=== PATIENT | male | born 2000 | race Caucasian/White ===

== ENCOUNTER 2019-05-06 13:11 | Emergency (ER) | payer SELFPAY ==
[~2019-05-06] VITALS: Ht 193 cm; Wt 110.4 kg
--- NOTE | 2019-05-06 13:59 | Diagnostic Imaging Report ---
Indication: Right ankle pain and swelling with redness. Comparison: None. Discussion: Three views of the right ankle were obtained. Diffuse soft tissue swelling is noted. The ankle mortise is symmetric. No fracture or dislocation. No osseous destruction. No foreign body. Impression: 1. Right ankle soft tissue swelling. No osseous abnormality. Dictated by: Dictated on workstation # [id number]
[2019-05-06 14:01] LABS: BASOPHILS % (AUTO) 1 % (0-10); EOSINOPHILS % (AUTO) 5 % (0-10); HEMATOCRIT 47 % (40-54); HEMOGLOBIN 15.8 G/DL (13.3-17.7); LYMPHOCYTES % (AUTO) 24 % (12-44); MEAN CORPUSCULAR HEMOGLOBIN 30 PG (25-34); MEAN CORPUSCULAR HGB CONC 34 G/DL (32-36); MEAN CORPUSCULAR VOLUME 89 FL (80-99); MEAN PLATELET VOLUME 10.3 FL (7.4-10.4); MONOCYTES % (AUTO) 12 % (0-12); NEUTROPHILS % (AUTO) 58 % (42-75); PLATELET COUNT 267 10^3/uL (130-400); RED CELL DISTRIBUTION WIDTH 12.8 % (10.0-14.5); WHITE BLOOD COUNT 7.2 10^3/uL (4.3-11.0)
[2019-05-06 14:02] LABS: BASOPHILS # (AUTO) 0.1 10^3/uL (0.0-0.1); EOSINOPHILS # (AUTO) 0.4 10^3/uL (0.0-0.3); LYMPHOCYTES # (AUTO) 1.7 X 10^3 (1.0-4.0); MONOCYTES # (AUTO) 0.9 X 10^3 (0.0-1.0); NEUTROPHILS # (AUTO) 4.2 X 10^3 (1.8-7.8)
[2019-05-06 14:27] LABS: ALKALINE PHOSPHATASE 104 U/L (40-136); BILIRUBIN,TOTAL 0.4 MG/DL (0.1-1.0); BUN/CREATININE RATIO 10; CALCIUM 9.7 MG/DL (8.5-10.1); CARBON DIOXIDE 26 MMOL/L (21-32); CHLORIDE 102 MMOL/L (98-107); CREATININE SERUM 0.86 MG/DL (0.60-1.30); GFR ESTIMATED > 60; GLUCOSE 84 MG/DL (70-105); SODIUM 141 MMOL/L (135-145)
[2019-05-06 14:28] LABS: ALANINE AMINOTRANSFERASE 26 U/L (0-55); ALBUMIN 4.6 GM/DL (3.2-4.5)
[2019-05-06 14:41] LABS: ERYTHROCYTE SEDIMENTATION RATE 5 MM/HR (0-15)
[2019-05-06] MEDS ORDERED: cefTRIAXone FOR IV USE 2,000 MG in WATER (STERILE) FOR INJECTION 20 ML IV ONE (14:45)
--- NOTE | 2019-05-06 15:10 | ED Integumentary General ---
General Chief Complaint: Skin/Wound Problems Stated Complaint: SWOLLEN/RED RT ANKLE Nursing Triage Note: Pt presents ambulatory to ED [facility] reporting area of pain with rednessa nd swelling started on Tue or . 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 and referred him to go be seen for it. Source: patient Exam Limitations: no limitations History of Present Illness Date Seen by Provider: May 06, 2019 Time Seen by Provider: 15:05 Initial Comments This 18-year-old male presents with a swollen red right ankle that began approximate 4 days ago. The patient denies trauma to the area. He denies similar episodes in the past. He denies other area of rash or inflammation. The patient denies sex with a new partner. He is heterosexual. Patient denies dysuria or frequency or penile discharge. Patient denies history of similar redness or joint pain in the past. 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 Patient denies significant past medical history. Allergies and Home Medications Allergies Coded Allergies: No Known Drug Allergies (Unverified , 05/06/19) Home Medications No Active Prescriptions or Reported Meds Patient Home Medication List Home Medication List Reviewed: Yes Review of Systems Review of Systems Constitutional: No chills, No fever EENTM: no symptoms reported Respiratory: no symptoms reported Cardiovascular: no symptoms reported Gastrointestinal: no symptoms reported Genitourinary: no symptoms reported; No discharge, No dysuria Musculoskeletal: see HPI; No back pain; joint pain Skin: change in color (right ankle) Psychiatric/Neurological: No Symptoms Reported Endocrine: No Symptoms Reported Hematologic/Lymphatic: No Symptoms Reported Past Wvxgjwl-Btxnun-Yfoaev Hx Past Med/Social Hx: Reviewed Nursing Past Med/Soc Hx Patient Social History Alcohol Use: Denies Use Recreational Drug Use: No Smoking Status: Never a Smoker Recent Foreign Travel: No Contact w/Someone Who Travel: No Recent Infectious Disease Expo: No Recent Hopitalizations: No Physical Abuse: No Sexual Abuse: No Mistreated: No Fear: No Immunizations Up To Date Tetanus Booster (TDap): Less than 5yrs PED Vaccines UTD: Yes Seasonal Allergies Seasonal Allergies: No Past Medical History Surgeries: No Respiratory: No Cardiac: No Neurological: No Genitourinary: No Gastrointestinal: No Musculoskeletal: No Endocrine: No HEENT: No Cancer: No Psychosocial: No Integumentary: No Blood Disorders: No Physical Exam Vital Signs Vital Signs - First Documented 05/06/19 13:45 Temp 36.6 Pulse 77 Resp 20 B/P (MAP) 155/89 O2 Delivery Room Air Capillary Refill : General Appearance: WD/WN, no apparent distress HEENT: normal ENT inspection Neck: normal inspection Cardiovascular: regular rate, rhythm Respiratory: lungs clear Gastrointestinal: normal bowel sounds, soft Back: normal inspection Extremities: inflammation (the right ankle is diffusely erythematous and swollen. There is a small area of questionable superficial ulceration over the lateral aspect of the right ankle.) Neurologic/Psychiatric: no motor/sensory deficits, alert, normal mood/affect, oriented x 3 Skin: other (erythema and tenderness over the right ankle bilaterally with a small superficial 2 cm area of possible early ulceration over the lateral malleolar area.) Skin Problem Location: lower extremities Skin Problem Character: erythema Progress/Results/Core Measures Results/Orders Lab Results Laboratory Tests Test 05/06/19 13:45 Range/Units White Blood Count 7.2 4.3-11.0 10^3/uL Red Blood Count 5.26 4.35-5.85 10^6/uL Hemoglobin 15.8 13.3-17.7 G/DL Hematocrit 47 40-54 % Mean Corpuscular Volume 89 80-99 FL Mean Corpuscular Hemoglobin 30 25-34 PG Mean Corpuscular Hemoglobin Concent 34 32-36 G/DL Red Cell Distribution Width 12.8 10.0-14.5 % Platelet Count 267 130-400 10^3/uL Mean Platelet Volume 10.3 7.4-10.4 FL Neutrophils (%) (Auto) 58 42-75 % Lymphocytes (%) (Auto) 24 12-44 % Monocytes (%) (Auto) 12 0-12 % Eosinophils (%) (Auto) 5 0-10 % Basophils (%) (Auto) 1 0-10 % Neutrophils # (Auto) 4.2 1.8-7.8 X 10^3 Lymphocytes # (Auto) 1.7 1.0-4.0 X 10^3 Monocytes # (Auto) 0.9 0.0-1.0 X 10^3 Eosinophils # (Auto) 0.4 H 0.0-0.3 10^3/uL Basophils # (Auto) 0.1 0.0-0.1 10^3/uL Erythrocyte Sedimentation Rate 5 0-15 MM/HR Sodium Level 141 135-145 MMOL/L Potassium Level 4.0 3.6-5.0 MMOL/L Chloride Level 102 98-107 MMOL/L Carbon Dioxide Level 26 21-32 MMOL/L Anion Gap 13 5-14 MMOL/L Blood Urea Nitrogen 9 7-18 MG/DL Creatinine 0.86 0.60-1.30 MG/DL Estimat Glomerular Filtration Rate > 60 BUN/Creatinine Ratio 10 Glucose Level 84 70-105 MG/DL Calcium Level 9.7 8.5-10.1 MG/DL Corrected Calcium 8.5-10.1 MG/DL Total Bilirubin 0.4 0.1-1.0 MG/DL Aspartate Amino Transf (AST/SGOT) 24 5-34 U/L Alanine Aminotransferase (ALT/SGPT) 26 0-55 U/L Alkaline Phosphatase 104 40-136 U/L C-Reactive Protein 1.21 H <0.50 MG/DL Total Protein 8.0 6.4-8.2 GM/DL Albumin 4.6 H 3.2-4.5 GM/DL My Orders Orders - YANDEL RHODES MD Cbc With Automated Diff (05/06/19 13:31) Comprehensive Metabolic Panel (05/06/19 13:31) Uric Acid (05/06/19 13:31) Ankle 3 View Right (05/06/19 13:33) Erythrocyte Sedimentation Rate (05/06/19 13:35) Crp Fs (05/06/19 13:45) Blood Culture (05/06/19 14:44) Ceftriaxone For Iv Use (Rocephin For I (05/06/19 14:45) Vital Signs/I&O 05/06/19 13:45 Temp 36.6 Pulse 77 Resp 20 B/P (MAP) 155/89 O2 Delivery Room Air Progress Progress Note : Time: 15:10 Progress Note X-ray demonstrated soft tissue swelling about the right ankle. The patient's sedimentation rate was normal but his CRP was elevated. White count was unremarkable. Blood cultures were obtained. Patient received 2 g Rocephin IV. And Bactrim DS 1 tablet twice a day. I asked that he follow-up with his doctor tomorrow. I asked he return if any problems or questions. I discussed the findings with the patient. I asked that he initi ate Augmentin 875 twice a day Departure Impression Primary Impression: Cellulitis of right ankle Disposition: HOME, SELF-CARE Condition: Improved Departure-Patient Inst. Decision time for Depature: 15:12 Referrals: [facility]/ZHANNA BOOTHE,LOCAL PHYSICIAN (PCP) Primary Care Physician Patient Instructions: Cellulitis (Skin Infection), Adult (DC) Add. Discharge Instructions: Augmentin and Bactrim as prescribed. Follow-up with tomorrow. Return of any problems or questions. Warm soaks 3 times a day to the right ankle. All discharge instructions reviewed with patient and/or family. Voiced understanding. Scripts Sulfamethoxazole/Trimethoprim (Bactrim Ds Tablet) 1 Each Tablet 1 EACH PO BID for 10 Days, TAB Prov: YANDEL RHODES MD 05/06/19 Amoxicillin/Potassium Clav (Augmentin 875-125 Tablet) 1 Each Tablet 1 EACH PO BID for 10 Days, #14 TAB 0 Refills Prov: YANDEL RHODES MD 05/06/19 YANDEL RHODES MD May 06, 2019 15:10
[2019-05-06] MEDS ORDERED: AMOX-358 PO (15:17)
[2019-05-06] MEDS ORDERED: SULF1TAB35 PO (15:17)
--- NOTE | 2019-05-06 15:55 | NUR ---
Pt discharged to home at this time after review of home instructions. The area of cellulitis was outlined with pen so margins are clear. Pt is to seek f/u per Dr Arauz tomorrow. 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 If unable to be seen the patient is to come to ER to have the follow up wound care visit per Dr Arauz advice to him.
[2019-05-06 21:10] LABS: URIC ACID 7.1 MG/DL (2.6-7.2)
== END 2019-05-06 15:55 | disposition home or self-care (01) ==
LOC: ER FS 13:12
DX: L03.115 Cellulitis of right lower limb (principal)
CPT/HCPCS: 36415; 73610; 80053; 84550; 85025; 85652; 86141; 87040; 96374